=== PATIENT | female | born 1935 | race Caucasian/White ===

== ENCOUNTER → 2017-05-14 | Outpatient (CLI) | payer MEDICARE ==
[~2017-05-14] MED LIST: ASPI-12 PO; BETH50TA PO; CIPR-245 PO; FURO40TA5 PO; HYDR-2132 PO; LORA10TA7 PO; METF500T6 PO; METO2.5T2 PO; POTA-9 PO; RIVA10TA GT; SYMB8060 IH
== END | disposition home or self-care (01) ==
LOC: RAH 14:56
PROVIDERS: ATTEND Nurse Practitioner Family
DX: R05 Cough (principal); I10 Essential (primary) hypertension; E11.9 Type 2 diabetes mellitus without complications; J45.909 Unspecified asthma, uncomplicated
CPT/HCPCS: 71046

== ENCOUNTER → 2018-06-14 | Outpatient (CLI) | payer MEDICARE ==
[~2018-06-14] MED LIST changes: +METF-444 PO; -METF500T6 PO
== END | disposition home or self-care (01) ==
LOC: RAH 09:40
PROVIDERS: ATTEND Nurse Practitioner Family
DX: I07.1 Rheumatic tricuspid insufficiency (principal); E65 Localized adiposity; R60.0 Localized edema
CPT/HCPCS: 93306

== ENCOUNTER → 2022-08-23 | Outpatient (CLI) | payer OTHER ==
[~2022-08-23] MED LIST changes: +ASPI-1197 PO; -ASPI-12 PO; +BACI30OI6 TP; -BETH50TA PO; -CIPR-245 PO; +CLOP-31 PO; -HYDR-2132 PO; -LORA10TA7 PO; -METF-444 PO; -METO2.5T2 PO; +POTA-200 PO; -POTA-9 PO; -RIVA10TA GT; +VALS1TAB80 PO
== END | disposition home or self-care (01) ==
LOC: RAH 12:56
PROVIDERS: ATTEND Nurse Practitioner Family
DX: I70.293 Other atherosclerosis of native arteries of extremities, bilateral legs (principal); R60.0 Localized edema
CPT/HCPCS: 93925; 93970